=== PATIENT | female | born 1950 | race Caucasian/White ===

== ENCOUNTER → 2022-05-20 | Day surgery (SDC) | payer MEDICARE ==
[2022-05-19 10:25] VITALS: BMI 27.0
[~2022-05-20] MED LIST: Bupivacaine PF 0.5% 30 ML VIAL ONE; CEFAZOLIN 2 GM VIAL ONE; Fentanyl 100 MCG/2 ML VIAL ONE; Lidocaine 1% PF 5 ML VIAL ONE; Neomycin-Polymyxin 1 ML AMP ONE; Ondansetron PF 4 MG/2 ML Vial ONE; PROPOFOL 20 ML ONE
== END ==
LOC: CSHSDC 09:49
PROVIDERS: ATTEND Podiatrist Foot & Ankle Surgery
PROC: 0QSN04Z Reposition Right Metatarsal with Internal Fixation Device, Open Approach (ICD-10-PCS; principal; 2022-05-20)
DX: M20.11 Hallux valgus (acquired), right foot (principal); K21.9 Gastro-esophageal reflux disease without esophagitis; E78.5 Hyperlipidemia, unspecified; Z79.899 Other long term (current) drug therapy; Z90.49 Acquired absence of other specified parts of digestive tract
CPT/HCPCS: C1713; C1769; C1776; J2405; J2704; J3010; S0020